=== PATIENT | male | born 1980 | race Caucasian/White ===

== ENCOUNTER 2020-08-25 23:14 | Emergency (ER) | payer MEDICAID, OTHER ==
[~2020-08-25] VITALS: Ht 190.5 cm; Wt 86.4 kg
[~2020-08-25 23:14] MED LIST: OXYC-302 PO
[2020-08-26] MEDS ORDERED: MORPHINE SULFATE 4 MG/ML, 1ML ONE ×2 (00:09→01:21)
[2020-08-26] MEDS ORDERED: ONDANSETRON 2MG/ML, 2ML ONE (00:09)
[2020-08-26] MEDS ORDERED: DICYCLOMINE 10 MG/ML, 2ML ONE (00:09)
[2020-08-26] MEDS: MORPHINE SULFATE 4 MG/ML, 1ML IVPush PRN ×2 (00:16→01:25)
[2020-08-26 00:21] LABS: BASOPHILS % (AUTO) 0 % (0-1); EOSINOPHILS % (AUTO) 0 % (1-7); LYMPHOCYTES % (AUTO) 7 % (22-44); MEAN CORPUSCULAR HGB CONC 33.9 g/dL (33.2-36.2); MEAN PLATELET VOLUME 7.1 fL (7.4-10.4); MONOCYTES % (AUTO) 4 % (2-9); NEUTROPHILS % (AUTO) 88 % (42-75); PLATELET COUNT 295 x10^3/uL (130-400); RED CELL DISTRIBUTION WIDTH 12.8 % (9.4-14.8)
--- NOTE | 2020-08-26 00:25 | NUR ---
PT. TO ED WITH C/O ABD CRAMPING, DIARRHEA X 48 HOURS. NOW WITH VOMITNG STARTING TONIGHT. PT. MOANING IN PAIN. DR. VINES WAS IN TO EVAL PT. AND DISCUSS POC. PT. REPORTS NOT TAKING HTN MEDS FOR 2 DAYS R/T ABD PAIN. IV ESTABLISHED, BLOOD DRAWN, MEDICATED PER MAR, IVF INFUSING PER MAR. SPO2 AND B/P MONITORS PLACED. PT. AWARE OF NEED FOR UA; ATTEMPTED BUT UNABLE. CALL LIGHT IN REACH.
[2020-08-26] MEDS ORDERED: ONDANSETRON 2MG/ML, 2ML IVPush ONE (00:30)
[2020-08-26] MEDS ORDERED: SODIUM CHLORIDE FLUSH 10ML SYR IVF ONE (00:30)
[2020-08-26] MEDS ORDERED: DICYCLOMINE 10 MG/ML, 2ML IM ONE (00:30)
[2020-08-26] MEDS ORDERED: SODIUM CHLORIDE 0.9% 1,000ML IVBOLUS ONE (00:30)
[2020-08-26 00:31] LABS: ALANINE AMINOTRANSFERASE 38 U/L (12-78); ALBUMIN 4.3 g/dL (3.4-5.0); ANION GAP 7 mmol/L (5-15); CALCIUM 9.5 mg/dL (8.5-10.1); CHLORIDE 105 mmol/L (98-107)
[2020-08-26 00:33] LABS: ALKALINE PHOSPHATASE 116 U/L (45-117); BILIRUBIN,TOTAL 0.6 mg/dL (0.2-1.0); TOTAL PROTEIN 8.6 g/dL (6.4-8.2)
--- NOTE | 2020-08-26 00:52 | NUR ---
PT. REPORTS PAIN IS DOWN TO 6/10 AND "MUCH BETTER THAN IT WAS". DENIES NEED FOR FURTHER INTERVENTION FOR PAIN. AWARE OF PLAN FOR CT. IVF COMPLETED. REMINDED OF NEED FOR URINE SAMPLE.
[2020-08-26 01:08] LABS: MD SCAN
[2020-08-26] MEDS ORDERED: OMNIPAQUE 350 MG/ML, 100ML BOTTLE ONE (01:17)
[2020-08-26 01:33] LABS: MICROSCOPIC AUTO
[2020-08-26 02:07] VITALS: BP 138/79
== END 2020-08-26 02:29 | disposition home or self-care (01) ==
LOC: ED 08-26 00:05
DX: K52.9 Noninfective gastroenteritis and colitis, unspecified (principal); K51.00 Ulcerative (chronic) pancolitis without complications; R10.84 Generalized abdominal pain; E86.0 Dehydration; R11.2 Nausea with vomiting, unspecified; M54.5 Low back pain; I10 Essential (primary) hypertension; F17.210 Nicotine dependence, cigarettes, uncomplicated
CPT/HCPCS: 36415; 74177; 80053; 81001; 83690; 85025; 96361; 96372; 96374; 96375; 96376; 99285; 99406; J0500; J2270; J2405; J7030; Q9967